=== PATIENT | male | born 1985 | race Caucasian/White ===

== ENCOUNTER 2017-03-30 19:10 | Emergency (ER) | payer MEDICAID ==
[~2017-03-30] VITALS: Ht 162.6 cm; Wt 101.0 kg
[2017-03-30 20:24] VITALS: Ht 162.6 cm; Wt 101.0 kg
--- NOTE | 2017-03-30 22:51 | RADRPT ---
PROCEDURE: US bilateral lower extremity veins. CLINICAL INDICATION: Bilateral leg pain and swelling. TECHNIQUE: Multiple longitudinal and transverse images of the bilateral lower extremity veins were obtained with torres scale and color Doppler imaging. The common femoral vein, femoral vein, and popl iteal vein were evaluated. 2D grayscale measurements with compression sonography, color Doppler, and pulsed Doppler with augmentation. COMPARISON: No prior studies are available for comparison. FINDINGS: The bilateral common femoral, femoral and popliteal veins are normally compressible throughout. Col or flow demonstrates normal filling of the vessels. Normal waveforms are visualized and there is no rmal response to augmentation. IMPRESSION: 1. No evidence of deep vein thrombosis involving either lower extremity. RPTAT: QQ .Sammy Hendrix MD, MD Date Time Electronically viewed and signed by .Sammy Hendrix MD, on 03/30/2017 22:50 .R/
[2017-03-30 23:02] LABS: BASOPHILS % 0.6 % (0.0-2.0); EOSINOPHILS # 0.2 10^3/ul (0.0-0.5); EOSINOPHILS % 3.4 % (0.0-7.0); HEMOGLOBIN 15.6 g/dl (14.0-18.0); LYMPHOCYTES # 2.1 10^3/ul (0.8-2.9); LYMPHOCYTES % 30.1 % (15.0-51.0); MEAN CORPUSCULAR HEMOGLOBIN 26.4 pg (29.0-33.0); MEAN CORPUSCULAR HGB CONC 31.8 g/dl (32.0-37.0); MEAN CORPUSCULAR VOLUME 82.8 fl (82.0-101.0); MEAN PLATELET VOLUME 11.5 fl (7.4-10.4); MONOCYTE # 0.6 10^3/ul (0.3-0.9); MONOCYTES % 8.7 % (0.0-11.0); NEUTROPHILS % 56.6 % (39.0-77.0); PLATELET COUNT 190 10^3/UL (140-415); RED BLOOD COUNT 5.92 10^6/ul (4.70-6.10); RED CELL DISTRIBUTION WIDTH 13.7 % (11.5-14.5); WHITE BLOOD COUNT 7.1 10^3/ul (4.8-10.8)
[2017-03-30 23:19] LABS: INR 1.04; PROTIME 13.6 Sec (12.2-14.2); PT RATIO 1.1
[2017-03-30 23:20] LABS: PARTIAL THROMBOPLASTIN TIME 30.8 Sec (25.0-35.0)
[2017-03-30 23:23] LABS: ALBUMIN 4.8 g/dl (3.3-4.9); ALBUMIN/GLOBULIN RATIO 1.45; BILIRUBIN,INDIRECT 0.2 mg/dl (0-1.1); BILIRUBIN,TOTAL 0.2 mg/dl (0.2-1.3); CALCIUM 9.2 mg/dl (8.4-10.2); CREATININE 0.99 mg/dl (0.61-1.24); POTASSIUM 3.8 mmol/L (3.5-5.1); TOTAL PROTEIN 8.1 g/dl (6.1-8.1)
[2017-03-31] MEDS ORDERED: NAPR-260 PO (00:49)
--- NOTE | 2017-03-31 00:49 | ERD ---
ER Documentation Chief Complaint Date/Time DATE: 03/31/17 TIME: 00:47 Chief Complaint R lower leg swelling/pain started today; hx of DVT; not taking any meds HPI This is a 31-year-old male, with a right lower extremity pain and swelling. Patient has a history of previous DVT. Swelling started today. No nausea no vomiting no fevers no chills. No chest pain. No other current complaints. ROS All systems reviewed and are negative except as per history of present illness. Medications Home Meds No Active Prescriptions or Reported Meds Allergies Allergies: Coded Allergies: No Known Allergy (Unverified , 03/30/17) PMhx/Soc Medical and Surgical Hx: pt denies Surgical Hx History of Surgery: No Anesthesia Reaction: No Hx Neurological Disorder: No Hx Respiratory Disorders: No Hx Cardiac Disorders: No Hx Psychiatric Problems: No Hx Miscellaneous Medical Probl: Yes (previous hx of DVT) Hx Alcohol Use: Yes Hx Substance Use: No Hx Tobacco Use: Yes Smoking Status: Never smoker Physical Exam Vitals Vital Signs Date Time Temp Pulse Resp B/P Pulse Ox O2 Delivery O2 Flow Rate FiO2 03/30/17 20:24 99.0 65 20 170/89 99 Physical Exam Const: [] Head: Atraumatic Eyes: Normal Conjunctiva ENT: Normal External Ears, Nose and Mouth. Neck: Full range of motion..~ No meningismus. Resp: Clear to auscultation bilaterally Cardio: Regular rate and rhythm, no murmurs Abd: Soft, non tender, non distended. Normal bowel sounds Skin: No petechiae or rashes Back: No midline or flank tenderness Ext: No cyanosis, or edema Neur: Awake and alert Psych: Normal Mood and Affect Result Diagram: 03/30/17220903/30/178 Results 24 hrs Laboratory Tests Test 03/30/17 22:10 03/30/17 22:18 White Blood Count 7.110^3/ul Red Blood Count 5.9210^6/ul Hemoglobin 15.6g/dl Hematocrit 49.0% Mean Corpuscular Volume 82.8fl Mean Corpuscular Hemoglobin 26.4pg Mean Corpuscular Hemoglobin Concent 31.8g/dl Red Cell Distribution Width 13.7% Platelet Count 00883^3/UL Mean Platelet Volume 11.5fl Neutrophils % 56.6% Lymphocytes % 30.1% Monocytes % 8.7% Eosinophils % 3.4% Basophils % 0.6% Nucleated Red Blood Cells % 0.0/100WBC Neutrophils # 4.010^3/ul Lymphocytes # 2.110^3/ul Monocytes # 0.610^3/ul Eosinophils # 0.210^3/ul Basophils # 0.010^3/ul Nucleated Red Blood Cells # 0.010^3/ul Prothrombin Time 13.6Sec Prothrombin Time Ratio 1.1 INR International Normalized Ratio 1.04 Activated Partial Thromboplast Time 30.8Sec Sodium Level 141mmol/L Potassium Level 3.8mmol/L Chloride Level 106mmol/L Carbon Dioxide Level 23mmol/L Anion Gap 16 Blood Urea Nitrogen 21mg/dl Creatinine 0.99mg/dl Glucose Level 89mg/dl Calcium Level 9.2mg/dl Total Bilirubin 0.2mg/dl Direct Bilirubin 0.00mg/dl Indirect Bilirubin 0.2mg/dl Aspartate Amino Transf (AST/SGOT) 18IU/L Alanine Aminotransferase (ALT/SGPT) 28IU/L Alkaline Phosphatase 48IU/L Total Protein 8.1g/dl Albumin 4.8g/dl Globulin 3.30g/dl Albumin/Globulin Ratio 1.45 Lipase 81U/L Procedures/MDM DVT study is negative. Medical decision-makin-year-old male with right lower extremity edema. No evidence of DVT. At this point stable for outpatient management. Patient will be discharged home. Follow-up with PCP. Departure Diagnosis: Primary Impression: Pain of right leg Condition: Stable MARJORIE GARCÍA Mar 31, 2017 00:48
[2017-03-31 01:15] VITALS: BP 158/93; PULSE 56; RESP 16; TEMP 98.7
== END 2017-03-31 01:20 | disposition home or self-care (01) ==
LOC: E/R 19:10
DX: M79.604 Pain in right leg (principal)
CPT/HCPCS: 36415; 80053; 83690; 85025; 85610; 85730; 93970; Z7502

== ENCOUNTER 2019-02-07 08:26 | Emergency (ER) | payer SELFPAY ==
[~2019-02-07] VITALS: Ht 170.2 cm; Wt 110.4 kg
[~2019-02-07 08:26] MED LIST: CEPH-443 PO; IBUP-1542 PO; NAPR-985 PO; SULF1TAB31 PO
[2019-02-07 08:36] VITALS: BP 167/89; PULSE 61; RESP 17; Ht 170.2 cm; Wt 110.4 kg
== END 2019-02-07 10:19 | disposition home or self-care (01) ==
LOC: FTE 08:26
DX: L03.115 Cellulitis of right lower limb (principal); F17.210 Nicotine dependence, cigarettes, uncomplicated
CPT/HCPCS: 96372; J0696